=== PATIENT | male | born 1995 | race Caucasian/White ===

== ENCOUNTER 2024-12-04 12:21 | Inpatient (IN) | payer MEDICAID, SELFPAY ==
--- OUTSIDE RECORDS SUMMARY | 2024-12-03 13:24 | XMS_ITS | Encounter Summary ---
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 12/03/2024 6:38 PM [facility] Creatinine 1.12 0.70 - 1.30 mg/dL LAB CHEMISTRY METHOD 12/03/2024 6:38 PM [facility] eGFR 92 >=60 mL/min/1. 73m2 LAB CHEMISTRY METHOD 12/03/2024 6:38 PM [facility] Comment:Calculation based on the Chronic Kidney Disease Epidemiology Collaboration (CKD-EPI) equation refit without adjustment for race. BUN/Creatinine Ratio 15.2 LAB CHEMISTRY METHOD 12/03/2024 6:38 PM [facility] Calcium 9.4 8.5 - 10.5 mg/dL LAB CHEMISTRY METHOD 12/03/2024 6:38 PM [facility] AST (SGOT) 18 10 - 42 unit/L LAB CHEMISTRY METHOD 12/03/2024 6:38 PM [facility] ALT (SGPT) 31 10 - 60 unit/L LAB CHEMISTRY METHOD 12/03/2024 6:38 PM [facility] Alkaline Phosphatase 80 42 - 121 unit/L LAB CHEMISTRY METHOD 12/03/2024 6:38 PM [facility] Total Protein 7.3 6.0 - 8.0 g/dL LAB CHEMISTRY METHOD 12/03/2024 6:38 PM [facility] Albumin 4.1 3.2 - 5.0 g/dL LAB CHEMISTRY METHOD 12/03/2024 6:38 PM EDT [facility] Total Bilirubin 0.6 0.0 - 1.4 mg/dL LAB CHEMISTRY METHOD 12/03/2024 6:38 PM EDT [facility] Blood Venous blood specimen / Unknown Venipuncture / Unknown 12/03/2024 5:35 PM EDT 12/03/2024 5:44 PM EDT us Joaquin Ochoa MD LAB BLOOD ORDERABLES Final Resul t [facility] [address] [place] [address], * CT Head wo Contrast (12/03/2024 5:20 PM EDT) Anatomical Region Laterality Modality Head and Neck Computed Tomogra phy 12/03/2024 5:47 PM EDT Impressions 12/03/2024 5:47 PM EDT 1. No acute intracranial findings. This document has been electronically signed by: Osmany Reeder MD on 12/03/2024 17:47:34 Narrative 12/03/2024 5:47 PM EDT INDICATION: Mental status change, unknown cause CT head without contrast. COMPARISON: None provided. FINDINGS: The visualized paranasal sinuses are clear. The mastoid air cells are clear. No calvarial fracture. No evidence for mass or mass effect. No intracranial hemorrhage or abnormal extra-axial fluid collection. No evidence of hydrocephalus. The basilar cisterns are patent. Posterior fossa appears unremarkable. Procedure Note Osmany Reeder MD - 12/03/2024 INDICATION: Mental status change, unknown cause CT head without contrast. COMPARISON: None provided. FINDINGS: The visualized paranasal sinuses are clear. The mastoid air cells are clear. No calvarial fracture. No evidence for mass or mass effect. No intracranial hemorrhage or abnormal extra-axial fluid collection. No evidence of hydrocephalus. The basilar cisterns are patent. Posterior fossa appears unremarkable. IMPRESSION: 1. No acute intracranial findings. 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
[2024-12-04 13:28] VITALS: BP 146/82; PULSE 100; RESP 18; TEMP 36.9; O2SAT 96
[2024-12-04 13:33] VITALS: BMI 30.3
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
--- NOTE | 2024-12-04 14:33 | HO.PM.IMCN ---
History of Present Illness Data of Consult Service Date: 12/04/24 Primary Care Provider: Unknown Physician HPI Reason for consult: Medical H and P 29-year-old healthy male with reported hallucinations for the last 8 years which have been untreated presented to ED at [facility] for further care. Patient denied any SI or HI. He denies any past medical history. He was medically cleared at [facility], his EKG demonstrated a normal sinus rhythm. U tox was negative, TSH was within normal limits. CMP, Mag level, and CBC were normal. Chest x-ray was normal and CT head was normal with no abnormalities. He denies any medical concerns. On exam he is alert and oriented x4. Denies any shortness of breath, dizziness, lightheadedness or any other concerning symptoms. Review of Systems Review of Systems: Denies any shortness of breath, chest pain, dizziness, lightheadedness, abdominal pain or discomfort, nausea vomiting or diarrhea PMFSH Social History Advance Directives: No Advance Directives Information Provided: Yes Meds Allergies Allergy/AdvReac Type Severity Reaction Status Date / Time No Known Allergies Allergy Verified 12/04/24 13:18 Active Medications: Current Medications Acetaminophen (Acetaminophen 325 Mg Tablet) 650 mg PO Q6H PRN PRN Reason: Headache/Pain, Scale 1-10 Al Hydroxide/Mg Hydroxide (Magnesium Hydrox/Alum Hydrox 30 Ml Oral.Susp) 30 ml PO Q6H PRN PRN Reason: Heartburn/Nausea Hydroxyzine HCl (Hydroxyzine Hcl 25 Mg Tablet) 25 mg PO Q6H PRN PRN Reason: mild anxiety Magnesium Hydroxide (Milk Of Magnesia 30 Ml Oral.Susp) 30 ml PO DAILY PRN PRN Reason: Constipation Nicotine Polacrilex (Nicotine Polacrilex 2 Mg Gum) 4 mg BUCCAL Q2H PRN PRN Reason: Nicotine Cravings Trazodone HCl (Trazodone Hcl 50 Mg Tablet) 50 mg PO BEDTIME MRX1 PRN PRN Reason: Insomnia Home Medications ?Medication ?Instructions ?Recorded ?Confirmed ?Last Taken ?Type No Known Home Meds 12/04/24 12/04/24 Unknown History Physical Exam Vital Signs and Narrative: Vital Signs: Last Vital Signs Temp 98.4 F 12/04/24 13:28 Pulse 100 12/04/24 13:28 Resp 18 12/04/24 13:28 BP 146/82 H 12/04/24 13:28 Pulse Ox 96 12/04/24 13:28 O2 Del Method Room Air 12/04/24 13:28 BMI result Body Mass Index 30.3 CONST: Alert and oriented, in NAD. Well nourished HEENT: Normocephalic, atraumatic, MMM, Eyes clear, Neck supple RESP: Lungs clear, RRR even and regular HEART:,RRR, S1, S2. No murmur, no edema GI:Abdomen Soft NT, ND. + BS times four :Deferred SKIN: Warm dry and intact, no visible lesions or rashes NEURO:CN II-XII Intact bilaterally, Sensation intact. Speech clear PSYCH: Quiet, cooperative answers questions. Assessment and Plan (1) Hallucinations: Status: Acute Plan Hallucinations/unspecified psychosis Admitted to inpatient psych for treatment Treatment plan per Psychiatry team Thank you for allowing me to participate in the care of this patient. Signing off at this time. Please reconsult of any acute concerns or issues arise
--- OUTSIDE RECORDS SUMMARY | 2024-12-04 14:48 | XMS_ITS | Clinical Summary ---
Author Organization [facility] Address [address] [place] [address] Phone Care Team Providers Care Motor Tune Up Specialist Name Role Phone Physician, Pcp Unknown Primary Care Provider Debi vailable Allergies No known active allergies Encounters Date Type Department Care Team Description 12/03/2024 1:24 PM EDT - 12/04/2024 12:10 PM EDT Emergency [facility] Emergency [address] [place] [address] Joaquin Ochoa MD Lawrenz, Cedric W, MD Ziebro, John, MD Acute psychosis ([facility] V24, [facility] V28) (Primary Dx) Discharge Disposition: Another Health Care Institution Not Defined from Last 3 Months Medical History Medical History Date Comments Hallucinations Social History Tobacco Use Types Packs/Day Years Used Date Smoking Tobacco: Never Smokeless Tobacco: Never Tobacco Cessation:Counseling Given: Not Answered Alcohol Use Standard Drinks/Week Comments Never 0 (1 standard drink = 0.6 oz pur e alcohol) Sex and Gender Information Value Date Recorded Sex Assigned at Not on file Legal Sex Male 9:13 AM EST Gender Identity Not on file Sexual Orientation Not on file Obstetrics History Last Filed Vital Signs Vital Sign Reading [...] Mass Index 32.49 12/03/2024 11:25 AM EDT Plan of Treatment Health Maintenance Due Date Last Done Comments DTaP,Tdap,and Td Vaccines (1 - Tdap) 2016 Hepatitis B Vaccines (1 of 3 - 19+ 3-dose series) 2016 HIV Screening 01/21/2024 Hepatitis C Screening 01/21/2024 Social Influencers of Health Screening 01/21/2024 Depression Screening 03/28/2024 COVID-19 Vaccine (1 - 2023-2 5 season) 2024 Influenza Vaccine (#1) 2024 HIB Vaccines Aged Out No longer eligi ble based on patient's age to complete this topic HPV Vaccines Aged Out No longer eligi ble based on patient's age to complete this topic Hepatitis A Vaccines Aged Out No long er eligible based on patient's age to complete this topic IPV Vaccines Aged Out No longer eligi ble based on patient's age to complete this topic MMR Vaccines Aged Out No longer eligi ble based on patient's age to complete this topic Meningococcal ACWY Vaccine Aged Out N o longer eligible based on patient's age to complete this topic Meningococcal B Vaccine Aged Out No l onger eligible based on patient's age to complete this topic Pneumococcal Vaccine: Pediat rics (0 to 5 Years) and At-Risk Patients (6 to 49 Years) Aged Out No longer eligible b ased on patient's age to complete this topic RSV Immunization Patients Un brooke 20 months Aged Out No longer eligible b ased on patient's age to complete this topic Varicella Vaccines Aged Out No longer eligible based on patient's age to complete this topic Procedures Procedure Name Priority Date/Time Associated Diagnosis Comments ECG 12-LEAD STAT 12/03/2024 10:34 PM EDT IQBAL URINE CULTURE TUBE Routine 12/03/2024 9:30 PM EDT EXTRA TUBES Routine 12/03/2024 9:30 PM EDT URINALYSIS WITH REFLEX MICROSCOPIC STAT 12/03/2024 9:30 PM EDT DRUG ABUSE SCREEN 8A PANEL, URINE STAT 12/03/2024 9:30 PM EDT URINALYSIS WITH REFLEX MICROSCOPIC STAT 12/03/2024 9:30 PM EDT XR CHEST 2 VIEWS STAT 12/03/2024 7:21 PM EDT CBC WITH AUTO DIFFERENTIAL STAT 12/03/2024 5:35 PM EDT CBC AND DIFFERENTIAL STAT 12/03/2024 5:35 PM EDT THYROXINE FREE STAT 12/03/2024 5:35 PM EDT THYROID STIMULATING HORMONE STAT 12/03/2024 5:35 PM EDT SALICYLATE LEVEL STAT 12/03/2024 5:35 PM EDT MAGNESIUM STAT 12/03/2024 5:35 PM EDT COMPREHENSIVE METABOLIC PANEL STAT 12/03/2024 5:[address] HEAD WO CONTRAST STAT 12/03/2024 5 :20 PM EDT from Last 3 Months Results * (ABNORMAL) Urinalysis with reflex microscopic (12/03/2024 9:30 PM EDT) [facility] Specific [place] Urine 1.034(H) 1.003 - 1.030 LAB URINALYSIS - AUTOMATED METHOD 12/03/2024 10:11 PM EDT [facility] pH, Urine 6.5 5.0 - 8.0 pH LAB URINALYSIS - AUTOMATED METHOD 12/03/2024 10:11 PM EDT [facility] Leukocytes, Urine Negative Negative LAB URINALYSIS - AUTOMATED METHOD 12/03/2024 10:11 PM EDT [facility] Nitrite, Urine Negative Negative LAB URINALYSIS - AUTOMATED METHOD 12/03/2024 10:11 PM EDT [facility] Protein, Urine Trace <=Trace mg/dL LAB URINALYSIS - AUTOMATED METHOD 12/03/2024 10:11 PM EDT [facility] Glucose, Urine Negative Negative mg/dL LAB URINALYSIS - AUTOMATED METHOD 12/03/2024 10:11 PM EDT [facility] Ketones, Urine Trace(A) Negative mg/dL LAB URINALYSIS - AUTOMATED METHOD 12/03/2024 10:11 PM EDT [facility] Urobilinogen, Urine 1.0 0.2 - 1.0 mg/dL LAB URINALYSIS - AUTOMATED METHOD 12/03/2024 10:11 PM EDT [facility] Bilirubin, Urine Negative Negative LAB URINALYSIS - AUTOMATED METHOD 12/03/2024 10:11 PM EDT [facility] Blood, Urine Negative Negative LAB URINALYSIS - AUTOMATED METHOD 12/03/2024 10:11 PM EDT [facility] Urine Urine specimen obtained by clean catch procedure / Unknown Non-blood Collection / Unknown 12/03/2024 9:30 PM EDT 12/03/2024 10:00 PM EDT us Joaquin Ochoa MD LAB URINE ORDERABLES Final Resul t Performing Organization Address [facility] de Phone Number [facility] [address] [place] [address], [place] [phone] * Iqbal urine culture tube (12/03/2024 9:30 PM EDT) Extra Tube Hold for add-ons. 12/04/2024 12:01 AM EDT [facility] Comment:Auto resulted. Urine Urine specimen obtained by clean catch procedure / Unknown 12/03/2024 9:30 PM EDT 12/03/2024 10:01 PM EDT us Joaquin Ochoa MD LAB URINE ORDERABLES Final Resul t Performing Organization Address City/[facility]/ZIP Co de Phone Number [facility] [address] [place] [address], [place] [phone] * Drug abuse screen 8a panel, urine (12/03/2024 9:30 PM EDT) [facility] Amphetamine Screen, Ur Negative Negative LAB CHEMISTRY METHOD 12/03/2024 10:35 PM EDT [facility] Comment:Certain OTC medicati ons containing ephedrine, phenylephrine, pseudoephedrine and phenylpropanolamine can cause false positive results. Barbiturate Screen, Ur Negative Negative LAB CHEMISTRY METHOD 12/03/2024 10:35 PM EDT [facility] Benzodiazepine Screen, Ur Negative Negative LAB [facility]MISTRY [facility] Cocaine Screen, Ur Negative Negative LAB CHEMISTRY METHOD 12/03/2024 10:35 PM [facility] Opiate Screen, Ur Negative Negative LAB CHEMISTRY METHOD 12/03/2024 10:35 PM [facility] Cannabinoid (THC) Screen, Ur Negative Negative LAB CHEMISTRY METHOD 12/03/2024 10:35 PM T [facility] Comment:Specimens from patie nts taking pantoprazole sodium (Protonix) have been shown to produce false positive results. Oxycodone Screen, Ur Negative Negative LAB CHEMISTRY METHOD 12/03/2024 10:35 PM [facility] Fentanyl, Ur Negative Negative LAB CHEMISTRY METHOD 12/03/2024 10:35 PM [facility] Urine Urine specimen obtained by clean catch procedure / Unknown Non-blood Collection / Unknown 12/03/2024 9:30 PM EDT 12/03/2024 10:00 PM EDT [facility] - 12/03/2024 10:35 PM EDT Assay cutoffs: Amphetamines 1000 ng/mL Barbiturates 200 ng/mL Benzodiazepines 200 ng/mL Cocaine 300 ng/mL Fentanyl 1 ng/mL Opiates 300 ng/mL Oxycodone 100 ng/mL THC 50 ng/mL Semi-quantitative assay for screening purposes only. Unconfirmed screening result should not be used for non-medical purposes. *ALTERNATE METHOD CONFIRMATION DONE UPON REQUEST ONLY* Joaquin Ochoa MD LAB URINE ORDERABLES Final Resul t [facility] ([facility]) [facility] [address] [place] [address], [place] [phone] * XR Chest 2 Views (12/03/2024 7:21 PM EDT) Anatomical Region Laterality Modality Body Radiographic Lora ging 12/04/2024 8:10 AM EDT Impressions 12/04/2024 8:10 AM EDT Normal chest radiographs. -------- FINAL REPORT -------- Dictated By: Nile Pappas Dictated Date: 12/04/2024 08:10 ET Assigned Physician: Nile Pappas Reviewed and Electronically Signed By: Nile Pappas Signed Date: 12/04/2024 08:10 ET Workstation ID: [id number] Transcribed By: Self Edit Transcribed Date: 12/04/2024 [...] Signed Date: 12/04/2024 08:10 ET Workstation ID: [id number] Transcribed By: Self Edit Transcribed Date: 12/04/2024 08:10 ET us Joaquin Ochoa MD IMG XR PROCEDURES Final Result * CBC auto differential (12/03/2024 5:35 PM EDT) [facility] WBC 7.2 4.8 - 10.8 K/mcL LAB HEMETOLOGY METHOD 12/03/2024 5:59 PM EDT [facility] RBC 5.30 4.50 - 5.50 M/mcL LAB HEMETOLOGY METHOD 12/03/2024 5:59 PM EDT [facility] Hemoglobin 15.4 13.5 - 17.5 g/dL LAB HEMETOLOGY METHOD 12/03/2024 5:59 PM EDT [facility] Hematocrit 45.5 42.0 - 54.0 % LAB HEMETOLOGY METHOD 12/03/2024 5:59 PM EDT [facility] MCV 85.7 79.0 - 98.0 FL LAB HEMETOLOGY METHOD 12/03/2024 5:59 PM EDT [facility] MCH 29.0 27.0 - 32.0 pcg LAB HEMETOLOGY METHOD 12/03/2024 5:59 PM EDT [facility] MCHC 33.8 32.0 - 37.0 g/dL LAB HEMETOLOGY METHOD 12/03/2024 5:59 PM EDT [facility] RDW 13.2 11.0 - 15.0 % LAB HEMETOLOGY METHOD 12/03/2024 5:59 PM EDT [facility] Platelets 244 130 - 400 K/mcL LAB HEMETOLOGY METHOD 12/03/2024 5:59 PM EDT [facility] MPV 9.1 7.0 - 11.0 FL LAB HEMETOLOGY METHOD 12/03/2024 5:59 PM EDT [facility] NRBC 0.0 <1.0 % LAB HEMETOLOGY METHOD 12/03/2024 5:59 PM EDT [facility] NRBC Absolute 0.00 <0.10 K/mcL LAB HEMETOLOGY METHOD 12/03[facility]2024 5:[facility] Neutrophils Relative 58.4 % LAB HEMETOLOGY METHOD 12/03/2024 5:59 PM [facility] Lymphocytes Relative 29.6 % LAB HEMETOLOGY METHOD 12/03/2024 5:59 [facility] Monocytes Relative 8.7 % LAB HEMETOLOGY METHOD 12/03/2024 5:59 PM [facility] Eosinophils Relative 2.1 % LAB HEMETOLOGY METHOD 12/03/2024 5:59 PM [facility] Basophils Relative 0.8 % LAB HEMETOLOGY METHOD 12/03/2024 5:59 PM [facility] Immature Granulocytes Relative 0.4 % LAB HEMETOLOGY METHOD 12/03/2024 5:59 PM [facility] Neutrophils Absolute 4.22 1.50 - 7.00 K/mcL LAB HEMETOLOGY METHOD 12/03/2024 5:59 PM [facility] Lymphocytes Absolute 2.14 1.00 - 5.00 K/mcL LAB HEMETOLOGY METHOD 12/03/2024 5:59 PM [facility] Monocytes Absolute 0.63 0.20 - 1.00 K/mcL LAB HEMETOLOGY METHOD 12/03/2024 5:59 PM [facility] Eosinophils Absolute 0.15 0.00 - 0.50 K/mcL LAB HEMETOLOGY METHOD 12/03/2024 5:59 PM [facility] Basophils Absolute 0.06 0.00 - 0.20 K/mcL LAB HEMETOLOGY METHOD 12/03/2024 5:59 PM [facility] Immature Granulocytes Absolute 0.03 0.00 - 0.03 K/mcL LAB HEMETOLOGY METHOD 12/03/2024 5:59 PM EDT [facility] Blood Venous blood specimen / Unknown Venipuncture / Unknown 12/03/2024 5:35 PM EDT 12/03/2024 5:44 PM EDT us Joaquin Ochoa MD LAB BLOOD ORDERABLES Final Resul t Performing Organization Address City/[facility] Co de Phone Number [facility] [address] [place] [address], [place] [phone] * Thyroid Stimulating Hormone (TSH) (12/03/2024 5:35 PM EDT) TSH 1.53 0.40 - 4.00 mcIU/mL LAB CHEMISTRY METHOD 12/03/2024 7:17 PM EDT [facility] Blood Venous blood specimen / Unknown Venipuncture / Unknown 12/03/2024 5:35 PM EDT 12/03/2024 5:44 PM EDT us Joaquin Ochoa MD LAB BLOOD ORDERABLES Final Resul t Performing Organization Address [facility] de Phone Number [facility] [address] [place] [address], [place] [phone] * T4, Free (12/03/2024 5:35 PM EDT) Free T4 1.06 0.70 - 1.80 ng/dL LAB CHEMISTRY METHOD 12/03/2024 7:16 PM EDT [facility] Blood Venous blood specimen / Unknown Venipuncture / Unknown 12/03/2024 5:35 PM EDT 12/03/2024 5:44 PM EDT us Joaquin Ochoa MD LAB BLOOD ORDERABLES Final Resul t Performing Organization Address City/[facility]/ZIP Co de Phone Number [facility] [address] [place] [address], [place] [phone] * Magnesium (12/03/2024 5:35 PM EDT) Magnesium 2.2 1.9 - 2.6 mg/dL LAB CHEMISTRY METHOD 12/03/2024 6:38 PM EDT [facility] Blood Venous blood specimen / Unknown Venipuncture / Unknown 12/03/2024 5:35 PM EDT 12/03/2024 5:44 PM EDT us Joaquin Ochoa MD LAB BLOOD ORDERABLES Final Resul t Performing Organization Address City/[facility]/ZIP Co de Phone Number [facility] [address] [place] [address], [place] [phone] * (ABNORMAL) Salicylate Level (12/03/2024 5:35 PM EDT) [facility] Salicylate Level <1.7(L) 2.0 - 29.0 mg/dL LAB CHEMISTRY METHOD 12/03/2024 6:38 PM EDT [facility] Blood Venous blood specimen / Unknown Venipuncture / Unknown 12/03/2024 5:35 PM EDT 12/03/2024 5:44 PM EDT us Joaquin Ochoa MD LAB BLOOD ORDERABLES Final Resul t [facility] [address] [place] [address], [place] [phone] * Comprehensive Metabolic Panel (CMP) (12/03/2024 5:35 PM EDT) Sodium 137 133 - 145 mmol/L LAB CHEMISTRY METHOD 12/03/2024 6:38 PM EDT [facility] Potassium 4.0 3.5 - 5.5 mmol/L LAB CHEMISTRY METHOD 12/03/2024 6:38 PM EDT [facility] Chloride 103 96 - 110 mmol/L LAB CHEMISTRY METHOD 12/03/2024 6:38 PM [facility] CO2 29 21 - 32 mmol/L LAB CHEMISTRY METHOD 12/03/2024 6:38 PM [facility] Anion Gap 5 3 - 11 LAB CHEMISTRY METHOD 12/03/2024 6:38 PM [facility] Glucose 91 70 - 100 mg/dL LAB CHEMISTRY METHOD 12/03/2024 6:38 PM [facility] BUN 17 5 - 25 mg/dL LAB CHEMISTRY METHOD 12/03/2024 6:38 PM [facility] Creatinine 1.12 0.70 - 1.30 mg/dL LAB CHEMISTRY METHOD 12/03/2024 6:38 PM [facility] eGFR 92 >=60 mL/min/1. 73m2 LAB CHEMISTRY METHOD 12/03/2024 6:38 PM [facility] Comment:Calculation based on the Chronic Kidney Disease Epidemiology Collaboration (CKD-EPI) equation refit without adjustment for race. BUN/Creatinine Ratio 15.2 LAB CHEMISTRY METHOD 12/03/2024 6:38 PM [facility] Calcium 9.4 8.5 - 10.5 mg/dL LAB CHEMISTRY METHOD 12/03/2024 6:38 PM [facility] AST (SGOT) 18 10 - 42 unit/L LAB CHEMISTRY METHOD 12/03/2024 6:38 PM [facility] ALT (SGPT) 31 10 - 60 unit/L LAB CHEMISTRY METHOD 12/03/2024 6:38 PM [facility] Alkaline Phosphatase 80 42 - 121 unit/L LAB CHEMISTRY METHOD 12/03/2024 6:38 PM [facility] Total Protein 7.3 6.0 - 8.0 g/dL LAB CHEMISTRY METHOD 12/03/2024 6:38 PM EDT [facility] Albumin 4.1 3.2 - 5.0 g/dL LAB CHEMISTRY METHOD 12/03/2024 6:38 PM EDT [facility]) [facility] Total Bilirubin 0.6 0.0 - 1.4 mg/dL LAB CHEMISTRY METHOD 12/03/2024 6:38 PM EDT [facility] ([facility] Blood Venous blood specimen / Unknown Venipuncture / Unknown 12/03/2024 5:35 PM EDT 12/03/2024 5:44 PM EDT us Joaquin Ochoa MD LAB BLOOD ORDERABLES Final Resul t [facility]) [facility] [address] [place] [address], * CT Head wo Contrast (12/03/2024 5:20 [...] Ochoa MD IMG CT PROCEDURES Final Result from Last 3 Months Care Teams Motor Tune Up Specialist Relationship Specialty Start Date End Date Physician, Pcp Unknown PCP - General 08/30/24
--- NOTE | 2024-12-04 17:34 | PC.ADMIT ---
Danie is a 29 y/o male that was admitted to at 1230 from [facility] on CV for treatment of schizophrenia.? Per crisis evaluation and per pt. Hx of hallucination for the past 8 yrs. Has been managing sx with occasional red wine and fish oil. Hx of having SI but never a plan.? Pt was alert and oriented x 3. Calm and cooperative with the admission process. Skin check unremarkable.? Mood is anxious, congruent affect.? Pt has AVH. Pt stated ?I am very temple and sometimes I get mantras in my head. I see words and they are like ice cubes. The ice cubes get crushed and I can feel it in different parts of my body. It isn't me saying the words or crushing? the ice it is like someone else doing it inside my body.? Pt reported Parents were part of a Taoism denominational were they spoke in tongues and he felt like that was wrong and changed sabianism and he met with a oil developer to save him from the devil. Pt reported ?having a fork in my stomach? Thought blocked at times and tangential.? Pt denied SI or HI at this time.? Pt denied sleep or appetite disturbances.? Pt had good focus.? Tox Screen negative. Pt denied any substance use. Pt reported randomly drinking wine to help cope with the voices.? No Medical Issues or Physical Complaints. Safety Checks - 15 mins Goal of admission is to not have the hallucinations
[2024-12-04 20:00] VITALS: BP 139/80; PULSE 105; RESP 16; TEMP 37; O2SAT 96
[2024-12-05 08:00] VITALS: BP 121/71; PULSE 85; RESP 16; TEMP 36.6; O2SAT 97
[2024-12-05 09:29] LABS: MANUAL DIFF FLAG NO
[2024-12-05 09:31] LABS: Hematocrit 44.9 % (42.0-52.0); Hemoglobin 15.8 g/dl (14.0-18.0); Imm Gran Abs Auto 0.02 X10*3/uL (0.00-0.03); Imm Gran Pct Auto 0.4 % (0.0-0.4); Lymphocytes Absolute Auto 1.3 X10*3/uL (1.2-4.9); Mean Corpuscular HGB Conc 35.2 g/dl (31.0-36.0); Mean Corpuscular Hemoglobin 30.0 pg (27.0-33.0); Mean Corpuscular Volume 85.4 fL (80.0-98.0); NRBC Abs Auto 0.000 X10*3/uL (0.0-0.012); NRBC Pct Auto 0.0 /100WBC (0.0-0.2); Platelet Count 223 X10*3/uL (160-400); Red Blood Count 5.26 X10*6/uL (4.60-5.80); White Blood Count 5.6 X10*3/uL (4.8-10.8)
[2024-12-05 09:46] LABS: Hemoglobin A1C 135.8954 umol/L; Total Hemoglobin (HGBA1C) 4047.4384 umol/L
[2024-12-05 09:59] LABS: Alanine Aminotransferase 30 U/L (0-40); Albumin Level 4.4 g/dL (3.5-5.0); Alkaline Phosphatase 77 U/L (39-117); Anion Gap 13 (12-20); Aspartate Amino Transferase 24 U/L (5-37); Blood Urea Nitrogen 18 mg/dL (9-16); Calcium 9.2 mg/dL (8.4-10.2); Carbon Dioxide 26 mmol/L (22-29); Chloride 108 mmol/L (96-108); Cholesterol 288 mg/dL (<200); Creatinine Clr Calc Pharmacy 134.2; Estimated Glomerular Filt Rate > 60; HDL Cholesterol 43 mg/dL (>40); Potassium 4.1 mmol/L (3.3-5.1); Sodium 143 mmol/L (135-145); Total Protein 7.2 g/dL (6.5-8.0); Triglycerides 230 mg/dL (<150)
[2024-12-05 10:23] LABS: Free T4 (Free Thyroxine) 0.94 ng/dL (0.71-1.85); Thyroid Stimulating Hormone 1.42 uIU/mL (0.32-4.0)
[2024-12-05 10:24] LABS: HIV Num 1 0.06 S/CO (0.00-0.99)
[2024-12-05 10:25] LABS: Syphilis Screen Nonreactive (Nonreactive)
[2024-12-05 10:34] LABS: Folate 9.8 ng/mL (> or = 4.0); Vitamin B12 701 pg/mL (200-900)
--- NOTE | 2024-12-05 13:37 | HO.PSYCHPN ---
Subjective Subjective Date of Service: 12/05/24 Reason For Visit: unspecified schizophrenia spectrum and other psych Interim History: calm, cooperative, pleasant. remains vague, moderately disorganized. feeling a little better. not so much of the weird stuff going on. it does kind of happen but i don't have to worry about it. asking for PRN for moments of overwhelm, tatiyprexa added. feeling fine on abilify 5. per staff, sleeping and eating. Mental Status Exam Mental Status Exam Narrative: disheveled, wearing own attire. cooperative. no PMA/PMR. speech nml rate, incr amount, nml loudness, decr latency. thoughts moderately disorganized. affect constricted, normo-intense, non-labile. mood euthymic. no SI/SIBI expressed. AVH continue but improved. Diagnostics Vital Signs (24Hr): Vital Signs - 24 hr 12/04/24 20:00 12/05/24 08:00 Temperature 98.6 F 97.8 F Pulse Rate 105 H 85 Respiratory Rate 16 16 Blood Pressure 139/80 121/71 Pulse Oximetry 96 97 Oxygen Delivery Method Room Air Room Air BMI result Body Mass Index 30.3 Labs 12/05/24 09:23 12/05/24 09:23 Labs: Laboratory Results - last 48 hr 12/05/24 09:23 WBC 5.6 RBC 5.26 Hgb 15.8 Hct 44.9 MCV 85.4 MCH 30.0 MCHC 35.2 RDW 13.2 Plt Count 223 MPV 9.1 L Immature Gran % (Auto) 0.4 Neut % (Auto) 65.9 Lymph % (Auto) 23.0 [place] % (Auto) 6.8 Eos % (Auto) 3.2 Baso % (Auto) 0.7 Lymph # (Auto) 1.3 [place] # (Auto) 0.4 Eos # (Auto) 0.2 Baso # (Auto) 0.0 Abs Immat Gran (auto) 0.02 Absolute Neuts (auto) 3.7 Absolute Nucleated RBC 0.000 Nucleated RBC % (auto) 0.0 Sodium 143 Potassium 4.1 Chloride 108 Carbon Dioxide 26 Anion Gap 13 BUN 18 H Creatinine 0.96 Estim Creat Clear Calc 134.2 Estimated GFR > 60 Random Glucose 93 Estimat Average Glucose 103 Hemoglobin A1c % 5.2 Calcium 9.2 Total Bilirubin 0.6 Direct Bilirubin 0.1 AST 24 ALT 30 Alkaline Phosphatase 77 Total Protein 7.2 Albumin 4.4 Triglycerides 230 H Cholesterol 288 H LDL Cholesterol, Calc 199 H HDL Cholesterol 43 Vitamin B12 701 Folate 9.8 TSH 1.42 Free T4 0.94 T.pallidum Ab (EIA) Nonreactive HIV 1&2 Ab/P24 Ag 4thGn Nonreactive Medications Medications Current Medications Acetaminophen (Acetaminophen 325 Mg Tablet) 650 mg PO Q6H PRN PRN Reason: Headache/Pain, Scale 1-10 Al Hydroxide/Mg Hydroxide (Magnesium Hydrox/Alum Hydrox 30 Ml Oral.Susp) 30 ml PO Q6H PRN PRN Reason: Heartburn/Nausea Aripiprazole (Aripiprazole 5 Mg Tablet) 5 mg PO DAILY DEVON Last Admin: 12/05/24 08:57 Dose: 5 mg Hydroxyzine HCl (Hydroxyzine Hcl 25 Mg Tablet) 25 mg PO Q6H PRN PRN Reason: mild anxiety Magnesium Hydroxide (Milk Of Magnesia 30 Ml Oral.Susp) 30 ml PO DAILY PRN PRN Reason: Constipation Nicotine Polacrilex (Nicotine Polacrilex 2 Mg Gum) 4 mg BUCCAL Q2H PRN PRN Reason: Nicotine Cravings Olanzapine (Olanzapine 5 Mg Tablet) 5 mg PO DAILY PRN PRN Reason: psychotic agitation Trazodone HCl (Trazodone Hcl 50 Mg Tablet) 50 mg PO BEDTIME MRX1 PRN PRN Reason: Insomnia Allergies Allergies Allergy/AdvReac Type Severity Reaction Status Date / Time No Known Allergies Allergy Verified 12/04/24 13:18 Assessment & Plan Assessment & Plan (1) Unspecified psychosis: Status: Acute Code(s): F29 - Unspecified psychosis not due to a substance or known physiological condition (2) Hallucinations: Status: Acute Code(s): R44.3 - Hallucinations, unspecified Plan 12/04: start abilify 2.5 mg NOW and 5 mg DAILY as of tomorrow morning. 12/05: tolerating abilify well. zyprexa 5 added for breakthrough Sx. asking for discharge tuesday improved Sx, but persisting Sx. continue current mgmt. Reason for continued inpatient stay Substantial Risk for: inability to function and rapid decompensation Time Spent With Patient Time: Total time managing care of this patient today __35__ minutes.
[2024-12-05 20:00] VITALS: BP 122/76; PULSE 89; RESP 16; TEMP 36.9; O2SAT 97
[2024-12-06 07:00] VITALS: BMI 30.4
[2024-12-06 07:51] VITALS: BP 121/64; PULSE 83; RESP 16; TEMP 37.2; O2SAT 98
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
[2024-12-06 20:00] VITALS: BP 145/79; PULSE 104; RESP 16; TEMP 37.5; O2SAT 98
[2024-12-07 08:00] VITALS: BP 124/71; PULSE 75; RESP 18; TEMP 37; O2SAT 96
== END 2024-12-07 09:15 | disposition home or self-care (01) | DRG 751 ==
PROVIDERS: Admitting Provider Psychiatry & Neurology Psychiatry; Visit Provider Psychiatry & Neurology Psychiatry
DX: F29 Unspecified psychosis not due to a substance or known physiological condition (principal); Z79.899 Other long term (current) drug therapy
CPT/HCPCS: 36415; 80048; 80061; 80076; 82607; 82746; 83036; 84439; 84443; 85025; 86780; 87389

== ENCOUNTER → 2024-12-04 12:21 | Outpatient (BNV) | payer OTHER, SELFPAY | PROVIDERS: Admitting Provider Psychiatry & Neurology Psychiatry; Visit Provider Psychiatry & Neurology Psychiatry | DX: F29 Unspecified psychosis not due to a substance or known physiological condition (principal) | CPT/HCPCS: 99233 ==

== ENCOUNTER → 2024-12-04 12:21 | Outpatient (BNV) | payer MEDICAID, SELFPAY | PROVIDERS: Admitting Provider Psychiatry & Neurology Psychiatry; Visit Provider Nurse Practitioner Family | DX: R44.3 Hallucinations, unspecified (principal) | CPT/HCPCS: 99221 ==